=== PATIENT | female | born 1960 | race Caucasian/White ===

== ENCOUNTER 2017-01-05 20:21 | Emergency (ER) | payer OTHER ==
[~2017-01-05] VITALS: Ht 157.5 cm; Wt 66.0 kg
[2017-01-05 20:26] VITALS: BP 218/95; PULSE 99; RESP 16; TEMP 98.6; O2SAT 100
[2017-01-05 21:04] VITALS: BP 216/100; PULSE 98; RESP 18; O2SAT 98
--- NOTE | 2017-01-05 21:19 | PD ---
HPI Chief Complaint: Hypertension Time Seen by Provider: 21:13 Travel History International Travel<30 days: No Contact w/Intl Traveler<30days: No Traveled to known affect area: No History of Present Illness HPI 56 YO F presents to the ED via EMS for evaluation of elevated BP x " a few days. " The patient endorses a single episode of palpitations and has been monitoring her heart rate on an reina on her phone. She also states that she feels as if she "can't catch my breath." The patient is visiting from [place], traveled here by car. She denies headache, vision changes, dizziness, chest pain, abdominal pain, N/V , facial droop, difficulties with word finding, weakness of the extremities. The patient admits to anxiety. She states that she was recently diagnosed with Parkinson's disease. She does not use oral contraception. She has never smoked. She is unsure of familial cardiac history. [facility]LY [facility] Social History Tobacco Use: No Review of Systems Except as stated in HPI: all other systems reviewed are Neg Physical Exam Narrative GENERAL: Well-nourished, well-developed anxious white female in no acute distress. SKIN: Focused skin assessment warm/dry. HEAD: Normocephalic. EYES: No scleral icterus. No injection or drainage. NECK: Supple, trachea midline. No JVD or lymphadenopathy. CARDIOVASCULAR: Regular rate and rhythm without murmurs, gallops, or rubs. RESPIRATORY: Breath sounds clear and equal bilaterally. No accessory muscle use. GASTROINTESTINAL: Abdomen soft, non-tender, nondistended. Active bowel sounds. MUSCULOSKELETAL: No cyanosis, or edema. Homans sign negative bilaterally. NEUROLOGICAL: Awake and alert. Cranial nerves II through XII intact. Motor and sensory grossly within normal limits. Five out of 5 muscle strength in all muscle groups. Normal speech. BACK: Nontender without obvious deformity. No CVA tenderness. Data Data Last Documented VS Vital Signs Date Time Temp Pulse Resp B/P (MAP) Pulse Ox O2 Delivery O2 Flow Rate FiO2 01/05/17 22:14 197/87 (123) 01/05/17 22:14 98 Room Air 01/05/17 21:04 98 18 01/05/17 20:26 98.6 Orders Orders Electrocardiogram (01/05/17 21:02) Electrocardiogram (01/05/17 21:35) Basic Metabolic Panel (Bmp) (01/05/17 21:35) Ckmb (Isoenzyme) Profile (01/05/17 21:35) Complete Blood Count With Diff (01/05/17 21:35) Magnesium (Mg) (01/05/17 21:35) Prothrombin Time / Inr (Pt) (01/05/17 21:35) Act Partial Throm Time (Ptt) (01/05/17 21:35) Troponin I (01/05/17 21:35) Chest, Single Ap (01/05/17 21:35) Ecg Monitoring (01/05/17 21:35) Bilateral Bp Monitoring (01/05/17 21:35) Iv Access Insert/Monitor (01/05/17 21:35) Oximetry (01/05/17 21:35) Urinalysis - C+S If Indicated (01/05/17 21:35) D-Dimer (01/05/17 21:35) Urine Culture (01/05/17 22:05) CKMB (01/05/17 22:05) CKMB% (01/05/17 22:05) Labs Laboratory Tests Test 01/05/17 22:05 White Blood Count 8.0 TH/MM3 Red Blood Count 4.29 MIL/MM3 Hemoglobin 13.0 GM/DL Hematocrit 38.6 % Mean Corpuscular Volume 90.2 FL Mean Corpuscular Hemoglobin 30.4 PG Mean Corpuscular Hemoglobin Concent 33.7 % Red Cell Distribution Width 13.0 % Platelet Count 219 TH/MM3 Mean Platelet Volume 7.3 FL Neutrophils (%) (Auto) 63.0 % Lymphocytes (%) (Auto) 26.5 % Monocytes (%) (Auto) 9.0 % Eosinophils (%) (Auto) 0.7 % Basophils (%) (Auto) 0.8 % Neutrophils # (Auto) 5.1 TH/MM3 Lymphocytes # (Auto) 2.1 TH/MM3 Monocytes # (Auto) 0.7 TH/MM3 Eosinophils # (Auto) 0.1 TH/MM3 Basophils # (Auto) 0.1 TH/MM3 CBC Comment DIFF FINAL Differential Comment Urine Color YELLOW Urine Turbidity CLEAR Urine pH 6.0 Urine Specific [place] 1.018 Urine Protein NEG mg/dL Urine Glucose (UA) NEG mg/dL Urine Ketones NEG mg/dL Urine Occult Blood TRACE Urine Nitrite NEG Urine Bilirubin NEG Urine Urobilinogen LESS THAN 2.0 MG/DL Urine Leukocyte Esterase MOD Urine RBC 2 /hpf Urine WBC 9 /hpf Urine Squamous Epithelial Cells <1 /hpf Urine Hyaline Casts 3 /lpf Microscopic Urinalysis Comment CULTURE INDICATED Blood Urea Nitrogen 20 MG/DL Creatinine 1.11 MG/DL Random Glucose 106 MG/DL Calcium Level 8.9 MG/DL Magnesium Level 2.1 MG/DL Sodium Level 141 MEQ/L Potassium Level 4.2 MEQ/L Chloride Level 107 MEQ/L Carbon Dioxide Level 28.7 MEQ/L Anion Gap 5 MEQ/L Estimat Glomerular Filtration Rate 51 ML/MIN Total Creatine Kinase 122 U/L Troponin I LESS THAN 0.02 NG/ML MDM Medical Decision Making Medical Screen Exam Complete: Yes Emergency Medical Condition: Yes Differential Diagnosis anxiety versus PE versus less likely ACS versus Narrative Course 56 YO F presents to the ED via EMS for evaluation of elevated BP x " a few days. " The patient endorses a single episode of palpitations and has been monitoring her heart rate on an reina on her phone. She also states that she feels as if she "can't catch my breath." The patient is visiting from [place], traveled here by car. She denies headache, vision changes, dizziness, chest pain, abdominal pain, N/V , facial droop, difficulties with word finding, weakness of the extremities. The patient admits to anxiety. She states that she was recently diagnosed with Parkinson's disease. She does not use oral contraception. She has never smoked. She is unsure of familial cardiac history. Patient's hypertensive on presentation. EKG rate 84, sinus rhythm. Normal intervals. Normal axis. No acute ST changes. Reviewed by Dr. Burt. CXR: No evidence of acute cardiopulmonary disease per radiology read. CBC, BMP, UA, d-dimer ordered and pending at this time. Disposition per Dr. Burt. Chhaya Marc Jan 05, 2017 21:19
--- NOTE | 2017-01-05 21:59 | RADRPT ---
EXAM DATE/TIME: 01/05/2017 21:52 [facility] COMPARISON: No previous studies available for comparison. INDICATIONS : Palpitations. MEDICAL HISTORY : Hypertension. SURGICAL HISTORY : Infusaport ENCOUNTER: Initial ACUITY: 1 day PAIN SCORE: 0/10 LOCATION: Bilateral chest FINDINGS: A single view of the chest demonstrates the lungs to be symmetrically aerated without evidence of mas s, infiltrate or effusion. The cardiomediastinal contours are unremarkable. Osseous structures are intact. There is a right subclavian [id number]-i-[id number] catheter with tip in the superior vena cava. CONCLUSION: No evidence of acute cardiopulmonary disease. Kennedy Butt MD on January 05, 2017 at 21:57 Board Certified Radiologist. This report was verified electronically.
[2017-01-05 22:14] VITALS: BP 197/87; O2SAT 98
[2017-01-05 22:26] LABS: AUTOMATED NEUTROPHIL # 5.1 TH/MM3 (1.8-7.7); BASOPHIL # 0.1 TH/MM3 (0-0.2); BASOPHIL % 0.8 % (0.0-2.0); EOSINOPHIL # 0.1 TH/MM3 (0-0.4); EOSINOPHIL % 0.7 % (0.0-4.0); HEMATOCRIT 38.6 % (35.0-46.0); HEMO FLAGS DIFF FINAL; LYMPH % 26.5 % (9.0-44.0); LYMPHOCYTE # 2.1 TH/MM3 (1.0-4.8); MEAN CELL VOLUME 90.2 FL (80.0-100.0); MEAN CORPUSCULAR HEMOGLOBIN 30.4 PG (27.0-34.0); MEAN CORPUSCULAR HGB CONC 33.7 % (32.0-36.0); PLATELET COUNT 219 TH/MM3 (150-450); RED BLOOD COUNT 4.29 MIL/MM3 (4.00-5.30)
[2017-01-05 22:36] LABS: BLOOD, URINE TRACE (NEG); GLUCOSE,URINE NEG (NEG); HYALINE CAST, URINE 3 /lpf (RARE); KETONE, URINE NEG (NEG); NITRITE,URINE NEG (NEG); SQUAMOUS EPITHELIAL CELL URINE <1 /hpf (0-5); URINE COLOR YELLOW (YELLW/STRAW)
[2017-01-05 22:40] LABS: COMMENT (UR) CULTURE INDICATED; CULTURE IF INDICATED CULTURE INDICATED
[2017-01-05 22:44] LABS: APTT (PATIENT) 42.3 SEC (24.3-30.1); PROTHROMBIN TIME - PATIENT 10.9 SEC (9.8-11.6)
[2017-01-05 22:49] LABS: ANION GAP 5 MEQ/L (5-15); BICARBONATE 28.7 MEQ/L (21.0-32.0); BLOOD UREA NITROGEN 20 MG/DL (7-18); CHLORIDE 107 MEQ/L (98-107); CREATINE KINASE 122 U/L (26-192); GLOMERULAR FILTRATION RATE 51 ML/MIN (>89); MAGNESIUM 2.1 MG/DL (1.5-2.5); POTASSIUM 4.2 MEQ/L (3.5-5.1); SODIUM (NA) 141 MEQ/L (136-145)
[2017-01-05 23:02] LABS: CKMB LESS THAN 0.5 NG/ML (0.5-3.6)
[2017-01-05 23:21] VITALS: BP 194/86; PULSE 79; RESP 18; O2SAT 97
[2017-01-05] MEDS ORDERED: CARB25TA9 PO (23:26)
[2017-01-05] MEDS ORDERED: ASAC800T PO (23:26)
[2017-01-05] MEDS ORDERED: vitamin B12 IM (23:26)
[2017-01-05] MEDS ORDERED: VITA100036 PO (23:26)
[2017-01-05] MEDS ORDERED: OXYB10TA PO (23:26)
[2017-01-05] MEDS ORDERED: CALC600T25 PO (23:26)
[2017-01-05] MEDS ORDERED: RASA1TAB PO (23:26)
[2017-01-05] MEDS ORDERED: FLEC1TAB8 PO (23:26)
[2017-01-05] MEDS ORDERED: amLODIPine BESYLATE 5 MG TAB PO ONE (23:30)
[2017-01-05] MEDS ORDERED: AMLO5TAB2 PO (23:32)
--- NOTE | 2017-01-05 23:32 | PD ---
Data Data Last Documented VS Vital Signs Date Time Temp Pulse Resp B/P (MAP) Pulse Ox O2 Delivery O2 Flow Rate FiO2 01/05/17 23:21 79 18 194/86 (122) 97 Room Air 01/05/17 20:26 98.6 Orders Orders Electrocardiogram (01/05/17 21:02) Electrocardiogram (01/05/17 21:35) Basic Metabolic Panel (Bmp) (01/05/17 21:35) Ckmb (Isoenzyme) Profile (01/05/17 21:35) Complete Blood Count With Diff (01/05/17 21:35) Magnesium (Mg) (01/05/17 21:35) Prothrombin Time / Inr (Pt) (01/05/17 21:35) Act Partial Throm Time (Ptt) (01/05/17 21:35) Troponin I (01/05/17 21:35) Chest, Single Ap (01/05/17 21:35) Ecg Monitoring (01/05/17 21:35) Bilateral Bp Monitoring (01/05/17 21:35) Iv Access Insert/Monitor (01/05/17 21:35) Oximetry (01/05/17 21:35) Urinalysis - C+S If Indicated (01/05/17 21:35) D-Dimer (01/05/17 21:35) Urine Culture (01/05/17 22:05) CKMB (01/05/17 22:05) CKMB% (01/05/17 22:05) Labs Laboratory Tests Test 01/05/17 22:05 White Blood Count 8.0 TH/MM3 Red Blood Count 4.29 MIL/MM3 Hemoglobin 13.0 GM/DL Hematocrit 38.6 % Mean Corpuscular Volume 90.2 FL Mean Corpuscular Hemoglobin 30.4 PG Mean Corpuscular Hemoglobin Concent 33.7 % Red Cell Distribution Width 13.0 % Platelet Count 219 TH/MM3 Mean Platelet Volume 7.3 FL Neutrophils (%) (Auto) 63.0 % Lymphocytes (%) (Auto) 26.5 % Monocytes (%) (Auto) 9.0 % Eosinophils (%) (Auto) 0.7 % Basophils (%) (Auto) 0.8 % Neutrophils # (Auto) 5.1 TH/MM3 Lymphocytes # (Auto) 2.1 TH/MM3 Monocytes # (Auto) 0.7 TH/MM3 Eosinophils # (Auto) 0.1 TH/MM3 Basophils # (Auto) 0.1 TH/MM3 CBC Comment DIFF FINAL Differential Comment Prothrombin Time 10.9 SEC Prothromb Time International Ratio 1.0 RATIO Activated Partial Thromboplast Time 42.3 SEC D-Dimer Quantitative (PE/DVT) 0.28 MG/L FEU Urine Color YELLOW Urine Turbidity CLEAR Urine pH 6.0 Urine Specific [place] 1.018 Urine Protein NEG mg/dL Urine Glucose (UA) NEG mg/dL Urine Ketones NEG mg/dL Urine Occult Blood TRACE Urine Nitrite NEG Urine Bilirubin NEG Urine Urobilinogen LESS THAN 2.0 MG/DL Urine Leukocyte Esterase MOD Urine RBC 2 /hpf Urine WBC 9 /hpf Urine Squamous Epithelial Cells <1 /hpf Urine Hyaline Casts 3 /lpf Microscopic Urinalysis Comment CULTURE INDICATED Blood Urea Nitrogen 20 MG/DL Creatinine 1.11 MG/DL Random Glucose 106 MG/DL Calcium Level 8.9 MG/DL Magnesium Level 2.1 MG/DL Sodium Level 141 MEQ/L Potassium Level 4.2 MEQ/L Chloride Level 107 MEQ/L Carbon Dioxide Level 28.7 MEQ/L Anion Gap 5 MEQ/L Estimat Glomerular Filtration Rate 51 ML/MIN Total Creatine Kinase 122 U/L Creatine Kinase MB LESS THAN 0.5 NG/ML Troponin I LESS THAN 0.02 NG/ML MDM Supervised Visit with MELVIN: Yes Narrative Course 56-year-old woman here with increased blood pressure and increased heart rate. Recently started medicine for Parkinson's disease. She looks well. She had a recent car ride and described some unusual shortness of breath symptoms. D- dimer is not elevated. X-ray and labs are unremarkable. She was on blood pressure medicine in the past. Blood pressures pretty elevated here. We'll start amlodipine. Outpatient follow-up when she returns home. Diagnosis Primary Impression: Elevated blood pressure reading Additional Instruction: Take amlodipine as prescribed. Continue other medications as previously prescribed. Follow up with her primary doctor when you return home. Return to the emergency department for any other new or worsening symptoms. Med/Other Pt SpecificInfo: Prescription(s) given Scripts Amlodipine (Amlodipine) 5 Mg Tab 5 MG PO DAILY for Blood Pressure Management, #30 TAB 0 Refills Prov: Vic Burt MD 01/05/17 Disposition: DISCHARGE HOME Condition: Stable Vic Burt MD Jan 05, 2017 23:32
--- NOTE | 2017-01-06 12:51 | EKG ---
Date Performed: 01/05/2017 Time Performed: 21:02:28 PTAGE: 56 years EKG: Sinus rhythm POSSIBLE LEFT ATRIAL ENLARGEMENT NONSPECIFIC T-WAVE ABNORMALITY BORDERLINE ECG NO PREVIOUS TRACING DOCTOR: Andre Banks Interpretating Date/Time 01/06/2017 12:50:35
== END 2017-01-05 23:51 | disposition home or self-care (01) ==
LOC: NEPE 20:21
DX: R03.0 Elevated blood-pressure reading, without diagnosis of hypertension (principal); G20 Parkinson's disease
CPT/HCPCS: 71010; 80048; 81001; 82550; 82552; 83735; 84484; 85025; 85379; 85610; 85730; 87086; 93005; 99285; J1642